=== PATIENT | female | born 1970 | race Caucasian/White ===

== ENCOUNTER 2024-05-11 09:10 | Day surgery (SDC) | payer BC ==
[~2024-05-11 09:10] MED LIST: Midazolam 1 MG/ML 2 ML SDV ONE; Propofol 200 MG/20 ML SDV ONE
[2024-05-11] MEDS ORDERED: Sodium Chloride 0.9% 10 ML Syringe FLUSH PRN (09:15)
[2024-05-11] MEDS: Lactated Ringers 1,000 ML IV SCH (09:43)
[2024-05-11 10:50] VITALS: BP 129/64; PULSE 63
== END 2024-05-11 11:00 | disposition home or self-care (01) ==
LOC: LL.SDS 09:10
PROVIDERS: ATTEND Surgery
DX: Z12.11 Encounter for screening for malignant neoplasm of colon (principal); E78.00 Pure hypercholesterolemia, unspecified; Z79.899 Other long term (current) drug therapy; Z86.0100 Personal history of colon polyps, unspecified
CPT/HCPCS: J2250; J2704; J7120